=== PATIENT | female | born 1935 | race Caucasian/White ===

== ENCOUNTER 2023-02-03 12:27 | Emergency (ER) | payer MEDICARE, OTHER ==
[2023-02-03] MEDS ORDERED: fentaNYL (PF) 50 MCG/ML 2 ML AMP IVP STA ×2 (12:45→14:44)
[2023-02-03] MEDS ORDERED: NOREPINEPHRINE 4 MG in SODIUM CHLORIDE 0.9% 250 ML IV ONE (12:56)
--- NOTE | 2023-02-03 12:58 | ED ---
General Adult HPI - General Chief complaint: Shortness of Breath Stated complaint: AMS Time Seen by Provider: 02/03/23 12:35 Source: EMS Mode of arrival: EMS Limitations: no limitations - History of Present Illness Initial comments: Dictation was produced using [employer] dictation software. please excuse any grammatical, word or spelling errors. Chief Complaint: 87-year-old female with extensive cancer history presents to the ER for weakness, lethargy and total body pain History of Present Illness: Is a 89-year-old female presents emergency Department with total body pain. Patient is currently resident midline half-way. Patient transferred to our facility after staff notified that patient has been having symptoms total body pain. She was found to be lethargic. Patient is a poor historian however she states that she doesn't feel well and that she has pain all over. Unable to obtain ROS secondary to clinical status - Related Data Home Medications Medication Instructions Recorded Confirmed Acetaminophen Tab [Tylenol] 650 mg PO Q6H PRN 02/03/23 02/03/23 Apixaban [Eliquis] 5 mg PO BID 02/03/23 02/03/23 Cetirizine HCl 10 mg PO DAILY 02/03/23 02/03/23 Citalopram Hydrobromide [CeleXA] 20 mg PO DAILY 02/03/23 02/03/23 Clotrimazole/Betameth Cream 1 applic TOPICAL BID 02/03/23 02/03/23 [Lotrisone] Cyanocobalamin [Vitamin B-12 1,000 mcg SQ Q30D 02/03/23 02/03/23 Injection] Ferrous Sulfate [Feosol] 325 mg PO DAILY 02/03/23 02/03/23 Fiber Complete Tablet 1 tab PO DAILY 02/03/23 02/03/23 Furosemide [Lasix] 20 mg PO DAILY 02/03/23 02/03/23 HYDROcodone/APAP 5-325MG [[place] 1 tab PO Q4H PRN 02/03/23 02/03/23 5-325] Levothyroxine Sodium [Synthroid] 75 mcg PO DAILY 02/03/23 02/03/23 Magnesium Oxide [Magox 400] 400 mg PO DAILY 02/03/23 02/03/23 Menthol/Zinc Oxide [Calprotect 1 applic TOPICAL QID 02/03/23 02/03/23 0.44%-20.6% Oint] Omeprazole 40 mg PO BID 02/03/23 02/03/23 Ondansetron [Zofran] 4 mg PO Q8HR PRN 02/03/23 02/03/23 Osimertinib Mesylate [Tagrisso] 80 mg PO DAILY 02/03/23 02/03/23 Potassium Chloride ER [K-Dur 10] 10 meq PO SUSA 02/03/23 02/03/23 Allergies Allergy/AdvReac Type Severity Reaction Status Date / Time No Known Allergies Allergy Verified 02/03/23 13:39 Review of Systems ROS Statement: Those systems with pertinent positive or pertinent negative responses have been documented in the HPI. ROS Other: All systems not noted in ROS Statement are negative. Past Medical History Past Medical History: Cancer Additional Past Medical History / Comment(s): lung mets to bone. Past Surgical History: Orthopedic Surgery Smoking Status: Never smoker Past Alcohol Use History: None Reported Past Drug Use History: None Reported General Exam - General Exam Comments Initial Comments: PHYSICAL EXAM: General Impression: Alert and oriented x3, lethargic, cachectic HEENT: Normocephalic atraumatic, extra-ocular movements intact, pupils equal and reactive to light bilaterally, dry mucous membranes Cardiovascular: Heart regular rate and rhythm Chest: , no retractions, no tachypnea Abdomen: abdomen soft, non-tender, non-distended, no organomegaly Musculoskeletal: Pulses present and equal in all extremities, no peripheral edema Motor: no focal deficits noted Neurological: CN II-XII grossly intact, no focal motor or sensory deficits noted Skin: Intact with no visualized rashes Limitations: no limitations Course Vital Signs 02/03/23 02/03/23 02/03/23 12:36 13:14 13:30 Temperature 97.8 F Pulse Rate 115 H 111 H 115 H Respiratory 12 16 14 Rate Blood Pressure 72/42 68/42 71/29 O2 Sat by Pulse 90 L Oximetry 02/03/23 02/03/23 02/03/23 13:59 14:07 14:39 Temperature Pulse Rate 120 H 133 H 132 H Respiratory 18 14 12 Rate Blood Pressure 69/40 46/36 77/44 O2 Sat by Pulse 92 L Oximetry - Reevaluation(s) Reevaluation #1: 02/03/23 12:56 Patient appears to be significantly ill based on her vital signs and physical examination. CODE STATUS and plans of care were discussed with patient. She does not want to be resuscitated if undergoes cardiac arrest. Furthermore, c entral venous catheter line placement was discussed with patient she also does not want to have the procedure performed. 02/03/23 12:57 Reevaluation #2: 02/03/23 14:29 Patient's heart rate increased and her blood pressure continued to decrease. Patient still continued to refuse any sort of treatment. Labs obtained. He will 9.8. INR is 2.5. Metabolic panel shows sodium 128, glucose less than 20. Lactic acidosis 4.3. Patient given glucose treatment. She is refusing glucose recheck. Reevaluation #3: 02/03/23 15:28all important family arrived. Decision was made with family to make patient comfort/palliative care. Patient be admitted for hospice care and end-of-life care. EKG Findings - EKG Comments: EKG Findings:: My EKG interpretation: Ventricular rate 1:15, sinus tachycardia,. 120, QRS 67, QTC 397. Interpretation limited due to artifact. suggests A. fib with RVR. Medical Decision Making - Medical Decision Making Was pt. sent in by a medical professional or institution (, PA, MOBILITY ARCHITECT MANAGER, urgent care, hospital, or half-way...) When possible be specific @ -Sent in from half-way Did you speak to anyone other than the patient for history (EMS, parent, family, police, friend...)? What history was obtained from this source @ -Family/daughter at the bedside states the patient has history of cancer on therapy Did you review nursing and triage notes (agree or disagree)? Why? @ -I reviewed and agree with nursing and triage notes Were old charts reviewed (outside hosp., previous admission, EMS record, old EKG, old radiological studies, urgent care reports/EKG's, half-way records)? Report findings @ -No old charts were reviewed Differential Diagnosis (chest pain, altered mental status, abdominal pain women, abdominal pain men, vaginal bleeding, musculoskeletal, weakness, fever, dyspnea, syncope, headache, dizziness, GI bleed, back pain, seizure, CVA, palpatations, mental health)? @ -Differential Weakness: Hypoglycemia, shock, sepsis, hyponatremia, anemia, infection, PA, ETOH, adverse medicine reaction, overdose, stroke, this is not meant to be an all-inclusive list. EKG interpreted by me (3pts min.). @ -See above X-rays interpreted by me (1pt min.). @ -Multifocal lung opacities CT interpreted by me (1pt min.). @ -None done U/S interpreted by me (1pt. min.). @ -None done What testing was considered but not performed or refused? (CT, X-rays, U/S, labs)? Why? @ -None What meds were considered but not given or refused? Why? @ -None Did you discuss the management of the patient with other professionals (professionals i.e. DrJuancarlos, PA, MOBILITY ARCHITECT MANAGER, lab, RT, psych nurse, psychologist social, middle school combination teacher, teacher, hydrographical technical officer, catalytic case operator)? Give summary @ -Case discussed with hospice care. Labs imaging and goals of care were discussed with son physician for admission Was smoking cessation discussed for >3mins.? @ -No Was critical care preformed (if so, how long)? @ -Yes, 33 minutes Were there social determinants of health that impacted care today? How? (Homelessness, low income, unemployed, alcoholism, drug addiction, transportation, low edu. Level, literacy, decrease access to med. care, retirement, rehab)? @ -No Was there de-escalation of care discussed even if they declined (Discuss DNR or withdrawal of care, Hospice)? DNR status @ -See above. Patient made comfort care What co-morbidities impacted this encounter? (DM, HTN, Smoking, COPD, CAD, Cancer, CVA, ARF, Chemo, Hep., AIDS, mental health diagnosis, sleep apnea, morbid obesity)? @ -None Was patient admitted / discharged? Hospital course, mention meds given and route, prescriptions, significant lab abnormalities, going to OR and other pertinent info. @ -87-year-old female presents to the emergency department with worsening lethargy and weakness she is extensive cancer history. Vital signs shows hypotension and tachycardia. It was decided with family that patient has had enough and that end of life care will be pursued Undiagnosed new problem with uncertain prognosis? @ -No Drug Therapy requiring intensive monitoring for toxicity (Heparin, Nitro, Insulin, Cardizem)? @ -No Were any procedures done? @ -No Diagnosis/symptom? Acute, or Chronic, or Acute on Chronic? Uncomplicated (without systemic symptoms) or Complicated (systemic symptoms)? @ -1. End of life care Side effects of treatment? @ -No Exacerbation, Progression, or Severe Exacerbation? @ -No Poses a threat to life or bodily function? How? (Chest pain, USA, PA, pneumonia, PE, COPD, DKA, ARF, appy, cholecystitis, CVA, Diverticulitis, Homicidal, Suicidal, threat to staff... and all critical care pts) @ -yes - Lab Data Result diagrams: 02/03/23 13:07 02/03/23 13:07 Lab Results 02/03/23 02/03/23 02/03/23 Range/Units 13:07 13:07 13:07 WBC 3.9 (3.8-10.6) k/uL RBC 3.31 L (3.80-5.40) m/uL Hgb 9.8 L (11.4-16.0) gm/dL Hct 31.0 L (34.0-46.0) % MCV 93.6 (80.0-100.0) fL MCH 29.7 (25.0-35.0) pg MCHC 31.7 (31.0-37.0) g/dL RDW 20.6 H (11.5-15.5) % Plt Count 203 (150-450) k/uL MPV 8.2 Neutrophils % (Manual) 54 % Band Neuts % (Manual) 5 % Lymphocytes % (Manual) 33 % Monocytes % (Manual) 6 % Metamyelocytes % 3 % Myelocytes % 1 % Neutrophils # (Manual) 2.30 (1.3-7.7) k/uL Lymphocytes # (Manual) 1.29 (1.0-4.8) k/uL Monocytes # (Manual) 0.23 (0-1.0) k/uL Metamyelocytes # (Man) 0.12 H (0) k/uL Myelocytes # (Manual) 0.04 H (0) k/uL Nucleated RBCs 1 H (0-0) /100 WBC Manual Slide Review Performed Hypochromasia Slight Poikilocytosis (manual Present Anisocytosis Moderate Macrocytosis Slight Target Cells Present PT 24.9 H (9.0-12.0) sec INR 2.5 H (<1.2) APTT 49.2 H (22.0-30.0) sec Sodium 128 L (137-145) mmol/L Potassium 4.6 (3.5-5.1) mmol/L Chloride 104 (98-107) mmol/L Carbon Dioxide 17 L (22-30) mmol/L Anion Gap 7 mmol/L BUN 25 H (7-17) mg/dL Creatinine 1.74 H (0.52-1.04) mg/dL Est GFR (CKD-EPI)AfAm 30 (>60 ml/min/1.73 sqM) Est GFR (CKD-EPI)NonAf 26 (>60 ml/min/1.73 sqM) Glucose <20 L* (74-99) mg/dL POC Glucose (mg/dL) (70-110) mg/dL POC Glu Oil Expeller ID Plasma Lactic Acid Niall (0.7-2.0) mmol/L Calcium 6.9 L (8.4-10.2) mg/dL Magnesium 1.8 (1.6-2.3) mg/dL Total Bilirubin 1.4 H (0.2-1.3) mg/dL AST 50 H (14-36) U/L ALT 19 (4-34) U/L Alkaline Phosphatase 110 (38-126) U/L Troponin I (0.000-0.034) ng/mL Total Protein 3.8 L (6.3-8.2) g/dL Albumin 1.5 L (3.5-5.0) g/dL 02/03/23 02/03/23 02/03/23 Range/Units 13:07 13:07 13:39 WBC (3.8-10.6) k/uL RBC (3.80-5.40) m/uL Hgb (11.4-16.0) gm/dL Hct (34.0-46.0) % MCV (80.0-100.0) fL MCH (25.0-35.0) pg MCHC (31.0-37.0) g/dL RDW (11.5-15.5) % Plt Count (150-450) k/uL MPV Neutrophils % (Manual) % Band Neuts % (Manual) % Lymphocytes % (Manual) % Monocytes % (Manual) % Metamyelocytes % % Myelocytes % % Neutrophils # (Manual) (1.3-7.7) k/uL Lymphocytes # (Manual) (1.0-4.8) k/uL Monocytes # (Manual) (0-1.0) k/uL Metamyelocytes # (Man) (0) k/uL Myelocytes # (Manual) (0) k/uL Nucleated RBCs (0-0) /100 WBC Manual Slide Review Hypochromasia Poikilocytosis (manual Anisocytosis Macrocytosis Target Cells PT (9.0-12.0) sec INR (<1.2) APTT (22.0-30.0) sec Sodium (137-145) mmol/L Potassium (3.5-5.1) mmol/L Chloride (98-107) mmol/L Carbon Dioxide (22-30) mmol/L Anion Gap mmol/L BUN (7-17) mg/dL Creatinine (0.52-1.04) mg/dL Est GFR (CKD-EPI)AfAm (>60 ml/min/1.73 sqM) Est GFR (CKD-EPI)NonAf (>60 ml/min/1.73 sqM) Glucose (74-99) mg/dL POC Glucose (mg/dL) <20 L (70-110) mg/dL POC Glu Oil Expeller Vinicius Richey Plasma Lactic Acid Niall 4.3 H* (0.7-2.0) mmol/L Calcium (8.4-10.2) mg/dL Magnesium (1.6-2.3) mg/dL Total Bilirubin (0.2-1.3) mg/dL AST (14-36) U/L ALT (4-34) U/L Alkaline Phosphatase (38-126) U/L Troponin I 0.020 (0.000-0.034) ng/mL Total Protein (6.3-8.2) g/dL Albumin (3.5-5.0) g/dL Disposition Clinical Impression: End of life care Disposition: ADMITTED IP TO THIS [facility] Condition: Undetermined Referrals: None,Stated [Primary Care Provider] - 1-2 days Decision Time: 15:00
[2023-02-03 13:20] LABS: Anisocytosis Moderate; HGB 9.8 gm/dL (11.4-16.0); Hypochromasia Slight; MCH 29.7 pg (25.0-35.0); MCHC 31.7 g/dL (31.0-37.0); MCV 93.6 fL (80.0-100.0); Macrocytosis Slight; Mean Platelet Volume 8.2; Platelet Count 203 k/uL (150-450); RBC 3.31 m/uL (3.80-5.40); RDW 20.6 % (11.5-15.5); WBC 3.9 k/uL (3.8-10.6)
--- NOTE | 2023-02-03 13:21 | XR ---
EXAMINATION TYPE: XR chest 1V portable DATE OF EXAM: 02/03/2023 Comparison: None Clinical History: 87-year-old female malaise Findings: Reverse right shoulder arthroplasty. Heart normal size. Tortuous/ectatic thoracic aorta. There are fo maxine patchy opacities left base, left mid lung, and right midlung. Background hyperinflation. Impression: COPD with multifocal opacities including the bilateral mid lungs and left base. Correlate for possibl e multifocal pneumonia. Follow-up after treatment to ensure complete clearance and exclude any underl beba mass or other abnormality.
[2023-02-03 13:30] LABS: INR 2.5 (<1.2); Partial Thromboplastin Time 49.2 sec (22.0-30.0); Prothrombin Time 24.9 sec (9.0-12.0)
[2023-02-03 13:31] VITALS: TEMP 97.8
[2023-02-03 13:31] LABS: ALT 19 U/L (4-34); African American GFR (CKD) 30 (>60 ml/min/1.73 sqM); Albumin 1.5 g/dL (3.5-5.0); Anion Gap 7 mmol/L; Blood Urea Nitrogen 25 mg/dL (7-17); Calcium 6.9 mg/dL (8.4-10.2); Carbon Dioxide 17 mmol/L (22-30); Chloride 104 mmol/L (98-107); Non-African American GFR(CKD) 26 (>60 ml/min/1.73 sqM); Sodium 128 mmol/L (137-145); Total Bilirubin 1.4 mg/dL (0.2-1.3); Total Protein 3.8 g/dL (6.3-8.2)
[2023-02-03 13:45] LABS: Glucose,Whole Blood <20 mg/dL (70-110)
[2023-02-03] MEDS ORDERED: DEXTROSE 50% SYRINGE 50 ML IVP STA (13:45)
[2023-02-03 13:47] LABS: AST 50 U/L (14-36); Alkaline Phosphatase 110 U/L (38-126); Glucose <20 mg/dL (74-99); Magnesium 1.8 mg/dL (1.6-2.3); Potassium 4.6 mmol/L (3.5-5.1)
[2023-02-03 14:24] LABS: Band Neutrophils % 5 %; Lymphocytes # (M) 1.29 k/uL (1.0-4.8); Metamyelocytes # (M) 0.12 k/uL (0); Metamyelocytes % 3 %; Monocytes # (M) 0.23 k/uL (0-1.0); Myelocytes # (M) 0.04 k/uL (0); Myelocytes % 1 %; Neutrophils % (M) 54 %; Nucleated Red Blood Cells 1 /100 WBC (0-0); Total Cells Counted 200
[2023-02-03 14:25] LABS: Target Cells Present
[2023-02-03 14:26] LABS: Poikilocytosis (M) Present
[2023-02-03] MEDS ORDERED: fentaNYL (PF) 50 MCG/ML 2 ML AMP IVP ONE (14:41)
[2023-02-03] MEDS ORDERED: NALOXONE 0.4 MG/ML 1 ML VIAL IV PRN (15:27)
[2023-02-03] MEDS ORDERED: SODIUM CHLORIDE 0.9% 1,000 ML IV SCH (15:30)
[2023-02-03 15:39] VITALS: BP 79/53; PULSE 131; RESP 16
== END 2023-02-03 15:54 | disposition other institution (70) ==
LOC: EC 12:27
DX: Z51.5 Encounter for palliative care (principal); J44.9 Chronic obstructive pulmonary disease, unspecified; Z79.01 Long term (current) use of anticoagulants; Z79.899 Other long term (current) drug therapy
CPT/HCPCS: 36415; 93005; 80053; 83605; 83735; 84484; 85025; 85610; 85730; 71045; 99291; 96374; 96375; J3010

== ENCOUNTER 2023-02-03 14:07 | Inpatient (IN) | payer MEDICAID, MEDICARE ==
[2023-02-03] MEDS ORDERED: LORazepam 2 MG/ML INJ IV PRN (15:26)
[2023-02-03] MEDS ORDERED: SCOPOLAMINE 1 MG/72 HR PATCH TRANSDERM PRN (15:26)
[2023-02-03] MEDS ORDERED: ACETAMINOPHEN SUPPOSITORY 650 MG SUPP RECTAL PRN (15:26)
[2023-02-03] MEDS ORDERED: MORPHINE SULFATE 2 MG/ML SYRINGE IV PRN (15:35)
[2023-02-03] MEDS ORDERED: MORPHINE SULFATE 4 MG/ML SYRINGE IVP STA (15:40)
[2023-02-03] MEDS ORDERED: MORPHINE SULFATE (100 MG/2 ML) 100 MG in SODIUM CHLORIDE 0.9% 100 ML IV SCH (15:45)
[2023-02-03] MEDS ORDERED: diphenhydrAMINE 50 MG/ML 1 ML VIAL IVP PRN (16:06)
--- NOTE | 2023-02-03 17:07 | P.HPIM ---
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 fib, hypothyroidism, GERD, and anemia who presented to the ER due to low blood pressures obtained at her [facility]. On arrival to the ER she was tachycardic with pulse of 1:15 and her O2 sat was 90% on 4 L, blood pressure was 72/42. Laboratory analysis was remarkable for hemoglobin of 8.1, INR 2.5, sodium 128, glucose of less than 20, lactic acid 4.3, bilirubin 1.4, magnesium 1.7, carbon dioxide 17, albumin 1.5. Patient [facility] hosp[facility] and elected decide on inpatient hospice admission. Patient seen and examined at bedside. She complains of pain in her head. She describes this as a burning pain. She is asking for something to just make it go away quickly, and make her feel better or quickly. She denies any other pain, nausea, vomiting, or anxiety. Her medical history gathering from the hospice nurse patient has been having excessive amounts of nausea at the [facility] which has been leading to her not eating or drinking anything for the last several days and rapidly progressive weakness. Family members at bedside. Review of systems is limited due to patient's pain and difficulty with speaking due to dry mouth. All information obtained from thorough record review including review of [facility] records. Vital signs reviewed General: nontoxic, no distress, appears at stated age Derm: warm, dry Eyes: No lid lesions ENT: Nose and ears atraumatic, + dry mucous membranes Cardiovascular: S1S2 reg, no murmur, positive posterior tibial pulse bilateral, no edema, capillary refill less than 2 seconds Lungs: Decreased breath sounds bilateral bilateral, no rhonchi, no rales, no wheeze, no accessory muscle use Ext: + Gross muscle atrophy, no contractures Neuro: CN II-XII grossly intact, Psych: Alert, oriented, appropriate affect Assessment: Intractable pain and headache due to malignancy Lung cancer with metastatic disease to the bone Lactic acidosis Severe hyponatremia Hypoglycemia Anemia Coagulopathy Severe protein calorie malnutrition Imaging: Chest [id number] opacities including bilateral mid lung zone left base possible multifocal pneumonia versus mass EKG shows sinus tachycardia Data Review: As per HPI Plan: -Admit patient to hospice. - case discussed with hospice nurse in detail. We'll give morphine 4 mg IV push 1 now and then start morphine drip with titration for pain control -We will try Valium if patient still has headache after morphine 2 mg IV pushes, repeated every 4 hours as needed -Scopolamine patch if needed - Benadryl 25 mg IVP q 6 hours prn headache. The patient is admitted with an anticipated greater than 2 midnight stay Hospice/end of life care. CODE STATUS:DNR This dictation was prepared using [employer] voice recognition software. Though every attempt is made to correct errors during during dictation some may still exist. lactic Past Medical History Past Medical History: Cancer Additional Past Medical History / Comment(s): lung mets to bone, DVT, P. A fib, Anemia, RLS, arhtritis, anxiety, hypothyroidism, GERD with esophagitis Past Surgical History: Orthopedic Surgery Smoking Status: Never smoker Past Alcohol Use History: None Reported Past Drug Use History: None Reported Medications and Allergies Home Medications Medication Instructions Recorded Confirmed Type Acetaminophen Tab [Tylenol] 650 mg PO Q6H PRN 02/03/23 02/03/23 History Apixaban [Eliquis] 5 mg PO BID 02/03/23 02/03/23 History Cetirizine HCl 10 mg PO DAILY 02/03/23 02/03/23 History Citalopram Hydrobromide [CeleXA] 20 mg PO DAILY 02/03/23 02/03/23 History Clotrimazole/Betameth Cream 1 applic TOPICAL BID 02/03/23 02/03/23 History [Lotrisone] Cyanocobalamin [Vitamin B-12 1,000 mcg SQ Q30D 02/03/23 02/03/23 History Injection] Ferrous Sulfate [Feosol] 325 mg PO DAILY 02/03/23 02/03/23 History Fiber Complete Tablet 1 tab PO DAILY 02/03/23 02/03/23 History Furosemide [Lasix] 20 mg PO DAILY 02/03/23 02/03/23 History HYDROcodone/APAP 5-325MG [[place] 1 tab PO Q4H PRN 02/03/23 02/03/23 History 5-325] Levothyroxine Sodium [Synthroid] 75 mcg PO DAILY 02/03/23 02/03/23 History Magnesium Oxide [Magox 400] 400 mg PO DAILY 02/03/23 02/03/23 History Menthol/Zinc Oxide [Calprotect 1 applic TOPICAL QID 02/03/23 02/03/23 History 0.44%-20.6% Oint] Omeprazole 40 mg PO BID 02/03/23 02/03/23 History Ondansetron [Zofran] 4 mg PO Q8HR PRN 02/03/23 02/03/23 History Osimertinib Mesylate [Tagrisso] 80 mg PO DAILY 02/03/23 02/03/23 History Potassium Chloride ER [K-Dur 10] 10 meq PO SUSA 02/03/23 02/03/23 History Allergies Allergy/AdvReac Type Severity Reaction Status Date / Time No Known Allergies Allergy Verified 02/03/23 13:39 Physical Exam Osteopathic Statement: *. No significant issues noted on an osteopathic structural exam other than those noted in the History and Physical/Consult. Vitals: Intake and Output 02/03/23 02/03/23 02/03/23 06:59 14:59 22:59 Other: Weight 77 kg
[2023-02-03 18:50] VITALS: BP 149/76; PULSE 88; RESP 18; TEMP 98.3
--- NOTE | 2023-02-04 17:30 | P.DS ---
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 fib, hypothyroidism, GERD, and anemia who presented to the ER due to low blood pressures obtained at her [facility]. On arrival to the ER she was tachycardic with pulse of 1:15 and her O2 sat was 90% on 4 L, blood pressure was 72/42. Laboratory analysis was remarkable for hemoglobin of 8.1, INR 2.5, sodium 128, glucose of less than 20, lactic acid 4.3, bilirubin 1.4, magnesium 1.7, carbon dioxide 17, albumin 1.5. Patient [facility] hospice and elected decide on inpatient hospice admission. Patient on 02/03/23. Patient Condition at Discharge: Stable Plan - Discharge Summary New Discharge Prescriptions: No Action Ondansetron [Zofran] 4 mg PO Q8HR PRN PRN Reason: Nausea Omeprazole 40 mg PO BID Magnesium Oxide [Magox 400] 400 mg PO DAILY Clotrimazole/Betameth Cream [Lotrisone] 1 applic TOPICAL BID HYDROcodone/APAP 5-325MG [[place] 5-325] 1 tab PO Q4H PRN PRN Reason: Pain Furosemide [Lasix] 20 mg PO DAILY Cetirizine HCl 10 mg PO DAILY Apixaban [Eliquis] 5 mg PO BID Acetaminophen Tab [Tylenol] 650 mg PO Q6H PRN PRN Reason: Pain Or Fever > 100.5 Osimertinib Mesylate [Tagrisso] 80 mg PO DAILY Potassium Chloride ER [K-Dur 10] 10 meq PO SUSA Menthol/Zinc Oxide [Calprotect 0.44%-20.6% Oint] 1 applic TOPICAL QID Levothyroxine Sodium [Synthroid] 75 mcg PO DAILY Ferrous Sulfate [Feosol] 325 mg PO DAILY Fiber Complete Tablet 1 tab PO DAILY Cyanocobalamin [Vitamin B-12 Injection] 1,000 mcg SQ Q30D Citalopram Hydrobromide [CeleXA] 20 mg PO DAILY Discharge Medication List Acetaminophen Tab [Tylenol] 650 mg PO Q6H PRN 02/03/23 [History] Apixaban [Eliquis] 5 mg PO BID 02/03/23 [History] Cetirizine HCl 10 mg PO DAILY 02/03/23 [History] Citalopram Hydrobromide [CeleXA] 20 mg PO DAILY 02/03/23 [History] Clotrimazole/Betameth Cream [Lotrisone] 1 applic TOPICAL BID 02/03/23 [History] Cyanocobalamin [Vitamin B-12 Injection] 1,000 mcg SQ Q30D 02/03/23 [History] Ferrous Sulfate [Feosol] 325 mg PO DAILY 02/03/23 [History] Fiber Complete Tablet 1 tab PO DAILY 02/03/23 [History] Furosemide [Lasix] 20 mg PO DAILY 02/03/23 [History] HYDROcodone/APAP 5-325MG [[place] 5-325] 1 tab PO Q4H PRN 02/03/23 [History] Levothyroxine Sodium [Synthroid] 75 mcg PO DAILY 02/03/23 [History] Magnesium Oxide [Magox 400] 400 mg PO DAILY 02/03/23 [History] Menthol/Zinc Oxide [Calprotect 0.44%-20.6% Oint] 1 applic TOPICAL QID 02/03/23 [History] Omeprazole 40 mg PO BID 02/03/23 [History] Ondansetron [Zofran] 4 mg PO Q8HR PRN 02/03/23 [History] Osimertinib Mesylate [Tagrisso] 80 mg PO DAILY 02/03/23 [History] Potassium Chloride ER [K-Dur 10] 10 meq PO SUSA 02/03/23 [History] Follow up Appointment(s)/Referral(s): None,Stated [Primary Care Provider] - 1 Week Discharge Disposition: - Preliminary Cause of Preliminary Cause of : lung cancer
== END 2023-02-03 22:55 | disposition expired | DRG 951 ==
LOC: EC 14:07 → 5NMEDONC 15:26
PROVIDERS: ADMIT Family Medicine; ATTEND Family Medicine
DX: Z51.5 Encounter for palliative care (principal); E43 Unspecified severe protein-calorie malnutrition; D68.9 Coagulation defect, unspecified; E87.20 Acidosis, unspecified; C79.51 Secondary malignant neoplasm of bone; E87.1 Hypo-osmolality and hyponatremia; C34.92 Malignant neoplasm of unspecified part of left bronchus or lung; Z66 Do not resuscitate; G25.81 Restless legs syndrome; E03.9 Hypothyroidism, unspecified; D63.0 Anemia in neoplastic disease; G44.89 Other headache syndrome; R00.0 Tachycardia, unspecified; R68.2 Dry mouth, unspecified; K21.9 Gastro-esophageal reflux disease without esophagitis; I48.91 Unspecified atrial fibrillation; R03.1 Nonspecific low blood-pressure reading; E16.2 Hypoglycemia, unspecified; Z79.890 Hormone replacement therapy; Z79.899 Other long term (current) drug therapy; Z79.01 Long term (current) use of anticoagulants; Z86.718 Personal history of other venous thrombosis and embolism; Z68.29 Body mass index [BMI] 29.0-29.9, adult